=== PATIENT | male | born 1995 | race African-American/Black ===

== ENCOUNTER 2022-08-08 13:45 | Emergency (ER) | payer SELFPAY ==
[~2022-08-08] VITALS: Ht 190.5 cm; Wt 68.0 kg
[2022-08-08] MEDS ORDERED: TETRACAINE HCL 0.5% OPTH(EYE) SOLN 4ML LEFTEYE ONE (16:15)
[2022-08-08] MEDS ORDERED: LIDOCAINE 1% HCL (LOCAL ANESTH.) INJ 20ML MDV ONE (16:17)
[2022-08-08] MEDS ORDERED: ERY05OO OP (16:18)
[2022-08-08 16:21] VITALS: BP 116/71
== END 2022-08-08 16:32 | disposition home or self-care (01) ==
LOC: ER 13:51
DX: S05.02XA Injury of conjunctiva and corneal abrasion without foreign body, left eye, initial encounter (principal); Z79.2 Long term (current) use of antibiotics; X58.XXXA Exposure to other specified factors, initial encounter; Y93.89 Activity, other specified; Y92.89 Other specified places as the place of occurrence of the external cause; Y99.8 Other external cause status
CPT/HCPCS: 99283; J2001